=== PATIENT | female | born 1990 | race Caucasian/White ===

== ENCOUNTER 2016-04-15 19:44 | Emergency (ER) | payer OTHER ==
[~2016-04-15] VITALS: Ht 170.2 cm; Wt 95.1 kg
[~2016-04-15 19:44] MED LIST: BACTRIM,SEPT1 TABLET PO; INDOCIN50 MG PO; PEN-VEE K,VEET500 MG PO
[2016-04-15 21:05] LABS: EOSINOPHIL (%) 2.7 % (0-5); EOSINOPHIL COUNT 0.2 K/uL (0-0.3); HEMATOCRIT 35.3 % (36.0-46.0); IMMATURE GRANULOCYTE (%) 0.3 % (0.0-0.7); IMMATURE GRANULOCYTE COUNT 0.2 K/uL; LYMPHOCYTE COUNT 2.2 K/uL (1.0-2.8); MCH 29.4 PG (29.0-34.0); MCHC 34.3 G/DL (30.0-36.0); MCV 85.9 FL (83-99); MEAN PLAT.VOLUME 10.7 uM^3 (9.5-12.4); MONOCYTE COUNT 0.7 K/uL (0-0.8); NEUTROPHIL (%) 58.1 % (45-76); NEUTROPHIL COUNT 4.3 K/uL (1.8-6.4); PLATELET COUNT 214 K/uL (156-360); RBC DIS.WIDTH-CV 13.1 % (11.8-14.6); RBC DIS.WIDTH-SD 39.8 % (39-53); RED BLOOD COUNT 4.11 M/uL (3.80-5.20); WHITE BLOOD COUNT 7.3 K/uL (4.1-10.2)
[2016-04-15 21:18] LABS: CHLORIDE 111 mEq/L (99-109); POTASSIUM 3.8 mEq/L (3.7-5.4); SODIUM 141 mEq/L (136-147)
[2016-04-15 21:20] LABS: GLUCOSE 100 mg/dL (70-99)
[2016-04-15 21:21] LABS: ANION GAP 9 MEQ/L (2-14)
[2016-04-15 21:24] LABS: GFR ESTIMATE (CALCULATED) > 59 mL/min/
[2016-04-15 21:25] LABS: UREA NITROGEN (BUN) 9 mg/dL (9-23)
[2016-04-15] MEDS ORDERED: MOBIC7.5 MG PO (22:39)
[2016-04-15] MEDS ORDERED: BACLOFEN10 MG PO (22:39)
[2016-04-15 22:58] VITALS: BP 134/65
[2016-04-16 05:45] LABS: ALKALINE PHOSPHATASE 61 IU/L (3-129); SAMPLE HEMOLYSIS CHECK 0; SAMPLE ICTERIC CHECK 0; SAMPLE LIPEMIA CHECK 0; TOTAL BILIRUBIN 0.3 MG/DL (0.0-1.0)
== END 2016-04-15 22:59 | disposition home or self-care (01) ==
LOC: RME 19:44 → EME 19:44 → RME 22:59
DX: R60.9 Edema, unspecified (principal); M79.1 Myalgia; F17.200 Nicotine dependence, unspecified, uncomplicated
CPT/HCPCS: 80048; 80076; 83880; 84443; 85025; 99281; 99283

== ENCOUNTER 2016-04-28 17:25 | Emergency (ER) | payer OTHER ==
[~2016-04-28] VITALS: Ht 170.2 cm; Wt 92.0 kg
[~2016-04-28 17:25] MED LIST changes: +BACLOFEN10 MG PO; +MOBIC7.5 MG PO
[2016-04-28] MEDS ORDERED: MEDROL DOSEPAK4 MG PO (23:22)
[2016-04-28] MEDS ORDERED: ULTRAM50 MG PO (23:23)
[2016-04-28 23:59] VITALS: BP 129/77
== END 2016-04-29 | disposition home or self-care (01) ==
LOC: EME 17:25
DX: M25.50 Pain in unspecified joint (principal); R60.0 Localized edema; Z88.0 Allergy status to penicillin
CPT/HCPCS: 93970; 99281; 99284; J7512

== ENCOUNTER 2016-05-04 20:17 | Emergency (ER) | payer OTHER ==
[~2016-05-04] VITALS: Ht 170.2 cm; Wt 88.5 kg
[~2016-05-04 20:17] MED LIST changes: +MEDROL DOSEPAK4 MG PO; +ULTRAM50 MG PO
[2016-05-04] MEDS ORDERED: NARCAN4 MG NS (21:33)
[2016-05-04 21:50] VITALS: BP 105/65
== END 2016-05-04 22:11 | disposition home or self-care (01) ==
LOC: EME 20:17
DX: T50.991A Poisoning by other drugs, medicaments and biological substances, accidental (unintentional), initial encounter (principal); F17.200 Nicotine dependence, unspecified, uncomplicated
CPT/HCPCS: 99281; 99285; J2310